=== PATIENT | female | born 1945 | race Caucasian/White ===

== ENCOUNTER → 2017-10-30 | Outpatient (CLI) | payer OTHER | LOC: BRMIMAGING 14:08 | PROVIDERS: ATTEND Family Medicine | DX: Z12.31 Encounter for screening mammogram for malignant neoplasm of breast (principal); R92.8 Other abnormal and inconclusive findings on diagnostic imaging of breast; Z13.820 Encounter for screening for osteoporosis; M85.89 Other specified disorders of bone density and structure, multiple sites ==

== ENCOUNTER → 2017-11-05 | Outpatient (CLI) | payer OTHER | LOC: BRMIMAGING 09:16 | PROVIDERS: ATTEND Family Medicine | DX: Z03.89 Encounter for observation for other suspected diseases and conditions ruled out (principal) | CPT/HCPCS: 76641-PO ==

== ENCOUNTER → 2017-11-11 | Day surgery (SDC) | payer OTHER ==
[~2017-11-11] MED LIST: BUPIVACAINE 0.5% 10 ML SDV ONE; LIDOCAINE 1% 300 MG/30 ML SDV ONE; THROMBIN (BOVINE) 5,000 UNIT VIAL TP ONE
== END | disposition home or self-care (01) ==
LOC: FIMAGING 06:58
PROVIDERS: ATTEND Radiology Diagnostic Radiology
PROC: 0HBT3ZX Excision of Right Breast, Percutaneous Approach, Diagnostic (ICD-10-PCS; principal; 2017-11-11)
PROC: BH00ZZZ Plain Radiography of Right Breast (ICD-10-PCS; principal; 2017-11-11)
DX: R92.0 Mammographic microcalcification found on diagnostic imaging of breast (principal)